=== PATIENT | male | born 1950 | race African-American/Black ===

== ENCOUNTER 2018-11-13 15:12 | Emergency (ER) | payer MEDICARE, OTHER ==
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
[2018-11-13 15:57] VITALS: BP 135/75
[2018-11-13] MEDS ORDERED: LIDOCAINE 1% INJ-PF (10 MG/ML) 30 ML SDV ONE (16:02)
[2018-11-13] MEDS ORDERED: LIDOCAINE 1% INJ-PF (10 MG/ML) 30 ML SDV INJ ONE (16:29)
[2018-11-13] MEDS ORDERED: CEPHALEXIN 500 MG CAPSULE PO ONE (16:31)
[2018-11-13] MEDS ORDERED: DIPH/PERTUSS(ACELL)/TETANUS VAC/PF 0.5 ML SYR (>=10YO) IM ONE (16:34)
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
== END 2018-11-13 17:00 | disposition home or self-care (01) ==
LOC: ER 15:12
PROC: 0HQGXZZ Repair Left Hand Skin, External Approach (ICD-10-PCS; principal; 2018-11-13)
DX: S61.012A Laceration without foreign body of left thumb without damage to nail, initial encounter (principal); S60.222A Contusion of left hand, initial encounter; V42.5XXA Car driver injured in collision with two- or three-wheeled motor vehicle in traffic accident, initial encounter; I10 Essential (primary) hypertension
CPT/HCPCS: 12001; 99282; 90471; 73130; 90715; A9270; J3490